=== PATIENT | male | born 1945 | race Caucasian/White ===

== ENCOUNTER → 2021-04-09 | Outpatient (CLI) | payer MEDICARE ==
--- NOTE | 2021-04-09 13:24 | RAD ---
EXAM: RENAL ULTRASOUND CLINICAL HISTORY: Reason: CKD STAGE 3 / Spl. Instructions: / History: COMPARISON: None available. TECHNIQUE: Ultrasound examination of the bilateral kidneys and urinary bladder was performed. FINDINGS: The right kidney measures 10.7 x 4.1 x 5.6 cm and the left measures 11.1 x 5.4 x 5.5 cm. No hydroneph rosis or significant focal parenchymal abnormality of either kidney. The aorta is nonvisualized due t o obscuration of the midline structures from overlying bowel gas. IVC is patent. Urinary bladder is f luid distended and grossly unremarkable as well. Bilateral ureteral jets are present. IMPRESSION: No sonographically discernible renal abnormality. Electronically signed by: Shawn Harris MD (04/09/2021 1:22 PM) [id number]
== END ==
LOC: US 08:57
PROVIDERS: ATTEND Internal Medicine Nephrology
DX: N18.32 Chronic kidney disease, stage 3b (principal)
CPT/HCPCS: 76770